=== PATIENT | female | born 1995 | race Caucasian/White ===

== ENCOUNTER → 2025-02-03 14:55 | Outpatient (REF) | payer OTHER, SELFPAY | LOC: HWRAD 14:55 | PROVIDERS: ATTENDING PHYSICIAN Nurse Practitioner Family; FAMILY PHYSICIAN Family Medicine | DX: Z32.01 Encounter for pregnancy test, result positive (principal) | CPT/HCPCS: 76801 ==

== ENCOUNTER → 2025-04-22 06:59 | Outpatient (REF) | payer OTHER, SELFPAY | LOC: PNTC 06:59 | PROVIDERS: ATTENDING PHYSICIAN Obstetrics & Gynecology | DX: Z36.86 Encounter for antenatal screening for cervical length (principal); Z36.3 Encounter for antenatal screening for malformations; Z34.92 Encounter for supervision of normal pregnancy, unspecified, second trimester | CPT/HCPCS: 76805; 76817 ==